=== PATIENT | female | born 1980 | race African-American/Black ===

== ENCOUNTER 2018-05-13 14:09 | Emergency (ER) | payer OTHER ==
[2018-05-13 14:29] VITALS: TEMP 98.8; BMI 33.3
--- NOTE | 2018-05-13 15:16 | PDOC ---
History of Present Illness - General Chief Complaint: Edema Stated Complaint: LUMP ON LT BREAST Time Seen by Provider: 05/13/18 14:47 History Source: Patient Exam Limitations: No Limitations - History of Present Illness Initial Comments: 05/13/18 15:16 Onset of swelling, tenderness, and recurrent abscess to her left breast. States suffers from folliculitis and temples and has had multiple problems with abscesses in the past. Is diabetic, diet controlled now after a 250 pound weight loss status post gastric bypass. But hypertensive and noncompliant with medications Timing/Duration: unsure, 24 hours Severity: mild, moderate Associated Symptoms: reports: denies symptoms. denies: cough, fever/chills Past History - Past Medical History Allergies/Adverse Reactions: Allergies Allergy/AdvReac Type Severity Reaction Status Date / Time ran Allergy Verified 05/13/18 14:59 Home Medications: Ambulatory Orders Amlodipine Besylate 5 mg PO ASDIR #10 tablet 05/13/18 Calcium Carbonate [Calcium] 500 mg PO ASDIR 05/13/18 Sulfamethoxazole/Trimethoprim [Bactrim *Ds*] 1 each PO BID #14 tablet 05/13/18 Zolpidem Tartrate [Ambien] 5 mg PO ONCE 05/13/18 - Suicide/Smoking/Psychosocial Hx Smoking History: Current some day smoker Number of Cigarettes Smoked Daily: 4 Information on smoking cessation initiated: No Hx Alcohol Use: No Drug/Substance Use Hx: No Review of Systems - Review of Systems Able to Perform ROS?: Yes Is the patient limited Setswana proficient: Yes Constitutional: Yes: Symptoms Reported HEENTM: Yes: See HPI. No: Symptoms Reported Respiratory: Yes: See HPI. No: Symptoms reported Musculoskeletal: Yes: See HPI. No: Symptoms Reported Integumentary: Yes: Symptoms Reported, See HPI, Lesions, Lumps (tender to left breast ) All Other Systems: Reviewed and Negative *Physical Exam - Vital Signs Last Vital Signs Temp Pulse Resp BP Pulse Ox 98.8 F 66 16 184/108 H 99 05/13/18 14:20 05/13/18 14:20 05/13/18 14:20 05/13/18 14:20 05/13/18 14:20 - Physical Exam General Appearance: Yes: Nourished, Appropriately Dressed HEENT: positive: MARTI, Normal ENT Inspection, TMs Normal, Pharynx Normal Neck: negative: Tender, Lymphadenopathy (R), Lymphadenopathy (L) Respiratory/Chest: positive: Other (tender nodule to the left breast lower outer quadrant just outside of areole a that is tender with mild erythema circumferentially. It is not pointing, and no drainage able to be expressed. 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 Will start on Bactrim as patient probably suffers from MRSA lesions and have follow-up with with PMD or Dr. Santos breast surgeon for further evaluation and possible incision and drainage *DC/Admit/Observation/Transfer Diagnosis at time of Disposition: Breast abscess - Discharge Dispostion Disposition: HOME Condition at time of disposition: Stable Decision to Admit order: No - Referrals Referrals: Miller aMrley [Staff Physician] - - Patient Instructions Printed Discharge Instructions: DI for Mastitis Additional Instructions: Rest, keep area elevated. Avoid strenuous activity or exercise until wound is healed Use hot soaks to area as often as possible to bring more blood to the surface and encourage drainage May change dressings as needed to keep clean - Allow water from shower to wash area thoroughly for 2-3 minutes, and pat dry upon exit of shower and replace dressing. Change his dressing daily until the wound is completely healed. May use Tylenol or Motrin for mild pain relief Continue all medications as prescribed Followup with private physician in 2-3 days for wound check Return to emergency Department for worsening swelling, pain, redness, fevers as needed - Post Discharge Activity Forms/Work/School Notes: Back to Work
[2018-05-13 15:24] VITALS: BP 166/100; PULSE 63
== END 2018-05-13 15:30 | disposition home or self-care (01) ==
LOC: JER 14:09 → JERFT 14:09
DX: N61.1 Abscess of the breast and nipple (principal)
CPT/HCPCS: 99281-25

== ENCOUNTER 2018-05-21 11:43 | Emergency (ER) | payer OTHER ==
[2018-05-21 11:48] VITALS: BP 146/91; PULSE 88; TEMP 99.6; BMI 32.9
--- NOTE | 2018-05-21 13:01 | PDOC ---
History of Present Illness - General Chief Complaint: Respiratory Stated Complaint: COLD SYMPTOMS Time Seen by Provider: 05/21/18 12:06 Past History - Past Medical History Allergies/Adverse Reactions: Allergies Allergy/AdvReac Type Severity Reaction Status Date / Time ran Allergy Verified 05/21/18 11:47 Home Medications: Ambulatory Orders Amlodipine Besylate 5 mg PO ASDIR #10 tablet 05/13/18 Calcium Carbonate [Calcium] 500 mg PO ASDIR 05/13/18 Sulfamethoxazole/Trimethoprim [Bactrim *Ds*] 1 each PO BID #14 tablet 05/13/18 Zolpidem Tartrate [Ambien] 5 mg PO ONCE 05/13/18 COPD: No - Surgical History Gastric Stapling: Yes - Suicide/Smoking/Psychosocial Hx Smoking History: Never smoked Number of Cigarettes Smoked Daily: 4 Hx Alcohol Use: No Drug/Substance Use Hx: No *Physical Exam - Vital Signs Last Vital Signs Temp Pulse Resp BP Pulse Ox 99.6 F 88 20 146/91 99 05/21/18 11:44 05/21/18 11:44 05/21/18 11:44 05/21/18 11:44 05/21/18 11:44 Moderate Sedation - Procedure Monitoring Vital Signs: Procedure Monitoring Vital Signs Temperature 99.6 F 05/21/18 11:44 Pulse Rate 88 05/21/18 11:44 Respiratory Rate 20 05/21/18 11:44 Blood Pressure 146/91 05/21/18 11:44 O2 Sat by Pulse Oximetry (%) 99 05/21/18 11:44 Medical Decision Making - Medical Decision Making 05/21/18 12:59 I went to pts room assigned and pt not in room. I called the pt's name in fast track while a female pt was walking by but did not respond to her name. That individual proceeded to walk out and through the ER doors. I waited approx 5 minutes until considering pt an elopement, *DC/Admit/Observation/Transfer Diagnosis at time of Disposition: Eloped from emergency department - Discharge Dispostion Disposition: ELOPED Condition at time of disposition: Unchanged/Unknown - Referrals Referrals: ON STAFF,NOT [Primary Care Provider] - - Patient Instructions - Post Discharge Activity
== END 2018-05-21 12:28 | disposition left against medical advice (07) ==
LOC: JERFT 11:43
DX: Z53.21 Procedure and treatment not carried out due to patient leaving prior to being seen by health care provider (principal)
CPT/HCPCS: 99281-25

== ENCOUNTER 2018-07-24 21:33 | Emergency (ER) | payer OTHER ==
--- NOTE | 2018-07-24 21:37 | PDOC ---
Rapid Medical Evaluation Time Seen by Provider: 07/24/18 21:35 Medical Evaluation: Allergies Allergy/AdvReac Type Severity Reaction Status Date / Time ran Allergy Verified 05/21/18 11:47 07/24/18 21:35 I have performed a brief in-person evaluation of this patient. The patient presents with a chief complaint of: requests STD screening Pertinent physical exam findings: deferred I have ordered the following: gc, RPR, HIV The patient will proceed to the ED for further evaluation. Discharge Disposition - Diagnosis Screen for STD (sexually transmitted disease) - Referrals - Patient Instructions - Post Discharge Activity
[2018-07-24 21:45] VITALS: BP 146/92; PULSE 80; TEMP 98.2; BMI 33.3
[2018-07-24] MEDS ORDERED: AZITHROMYCIN 250 MG TABLET PO ONE (22:08)
--- NOTE | 2018-07-24 22:24 | PDOC ---
History of Present Illness - General Chief Complaint: Pain Stated Complaint: STD SCREENING/LUQ PAIN Time Seen by Provider: 07/24/18 21:35 - History of Present Illness Initial Comments: 07/24/18 22:23 38-year-old female concerned about STD transmission from a partner who is symptomatic. Partner had looking white discharge from his penis over the last month. Past History - Past Medical History Allergies/Adverse Reactions: Allergies Allergy/AdvReac Type Severity Reaction Status Date / Time ran Allergy Verified 05/21/18 11:47 shellfish derived Allergy Verified 07/24/18 22:03 Home Medications: Ambulatory Orders Amlodipine Besylate 5 mg PO ASDIR #10 tablet 05/13/18 Calcium Carbonate [Calcium] 500 mg PO ASDIR 05/13/18 Sulfamethoxazole/Trimethoprim [Bactrim *Ds*] 1 each PO BID #14 tablet 05/13/18 Zolpidem Tartrate [Ambien] 5 mg PO ONCE 05/13/18 COPD: No - Surgical History Gastric Stapling: Yes GI Surgery: Yes (Gastric bypass) - Suicide/Smoking/Psychosocial Hx Smoking History: Current every day smoker Number of Cigarettes Smoked Daily: 20 Information on smoking cessation initiated: Yes Hx Alcohol Use: No Drug/Substance Use Hx: No Review of Systems - Review of Systems Constitutional: No: Fever : No: Burning, Dysuria, Discharge *Physical Exam - Vital Signs Last Vital Signs Temp Pulse Resp BP Pulse Ox 98.2 F 80 20 146/92 99 07/24/18 21:42 07/24/18 21:42 07/24/18 21:42 07/24/18 21:42 07/24/18 21:42 - Physical Exam Comments: 07/24/18 22:23 HEAD: NC/AT EYES: Conjuntiva clear MS: Full ROM in all joints without edema NEUROLOGIC: No gross sensory or motor deficits, NVID SKIN: Normal color and temperature no lesions or rashes Medical Decision Making - Medical Decision Making 07/24/18 22:22 38-year-old female refusing HIV testing after possible exposure. She was exposed to chlamydia or gonorrhea as her partner has no acute discharge from his penis. She also refused syphilis testing she has scheduled follow-up with her primary care physician this week *DC/Admit/Observation/Transfer Diagnosis at time of Disposition: Screen for STD (sexually transmitted disease) - Discharge Dispostion Disposition: HOME Condition at time of disposition: Stable Decision to Admit order: No - Referrals Referrals: ON STAFF,NOT [Primary Care Provider] - [facility] [Provider Group] - Patient Instructions Printed Discharge Instructions: Chlamydia: The Silent STD, How to Detect and Treat STDs, Facts About Sexually Transmitted Infections Additional Instructions: You've refused HIV and syphilis testing. Elected follow-up with your primary care physician for further testing. You were treated for gonorrhea and chlamydia this evening. Return to the emergency room should you have any further issues. Please follow-up with your primary care physician as scheduled. - Post Discharge Activity
== END 2018-07-24 22:46 | disposition home or self-care (01) ==
LOC: JERFT 21:33
DX: Z20.2 Contact with and (suspected) exposure to infections with a predominantly sexual mode of transmission (principal)
CPT/HCPCS: 36415; 87491; 87591; 96372; 99281-25

== ENCOUNTER 2018-08-04 13:13 | Emergency (ER) | payer OTHER | END 2018-08-04 15:30 | disposition left against medical advice (07) | LOC: JER 13:13 ==

== ENCOUNTER 2018-10-15 05:33 | Emergency (ER) | payer OTHER ==
--- NOTE | 2018-10-15 05:53 | PDOC ---
History of Present Illness - General Stated Complaint: PSYCH Time Seen by Provider: 10/15/18 05:39 History Source: Patient Exam Limitations: No Limitations - History of Present Illness Initial Comments: 10/15/18 05:52 Pt wants to see a psychiatrist. Past History - Travel Traveled outside of the country in the last 30 days: No Close contact w/someone who was outside of country & ill: No - Past Medical History Allergies/Adverse Reactions: Allergies Allergy/AdvReac Type Severity Reaction Status Date / Time iodine Allergy Verified 10/15/18 06:38 ran Allergy Verified 10/15/18 06:38 shellfish derived Allergy Verified 10/15/18 06:38 Home Medications: Ambulatory Orders Amlodipine Besylate 5 mg PO ASDIR #10 tablet 05/13/18 [place] Carbonate [Eskalith -] 450 mg PO DAILY 07/24/18 Quetiapine Fumarate [Seroquel -] 50 mg PO HS 07/24/18 Ferrous Sulfate [Feosol] 325 mg PO DAILY 10/15/18 COPD: No HTN: Yes - Surgical History Gastric Stapling: Yes GI Surgery: Yes (Gastric bypass 2011) - Immunization History Immunization Up to Date: No - Suicide/Smoking/Psychosocial Hx Smoking History: Current every day smoker Number of Cigarettes Smoked Daily: 20 Hx Alcohol Use: No Drug/Substance Use Hx: No Review of Systems - Review of Systems Constitutional: Yes: Loss of Appetite HEENTM: No: Symptoms Reported, See HPI, Eye Pain, Blurred Vision, Tearing, Recent change in vision, Double Vision, Cataracts, Ear Pain, Ocular Prothesis, Ear Discharge, Nose Pain, Nose Congestion, Tinnitus, Nose Bleeding, Hearing Loss , Throat Pain, Throat Swelling, Mouth Pain, Dental Problems, Difficulty Swallowing, Mouth Swelling, Other Respiratory: No: Symptoms reported, See HPI, Cough, Orthopnea, Shortness of Breath, SOB with Exertion, SOB at Rest, Stridor, Wheezing, Productive cough, Hemoptysis, Other ABD/GI: No: Symptoms Reported, See HPI, Abdominal Distended, Abd. Pain w/ defecation, Blood Streaked Bowels, Constipated, Diarrhea, Difficulty Swallowing , Nausea, Poor Appetite, Poor Fluid Intake, Rectal Bleeding, Vomiting, Indigestion, Abdominal cramping, Tarry Stools, Other : No: Symptoms Reported, See HPI, Burning, Dysuria, Discharge, Frequency, Flank Pain, Hematuria, Incontinence, Pain, Urgency, Testicular Mass, Testicular Swelling, Lesions, Testicular Pain, Other Musculoskeletal: No: Symptoms Reported, See HPI, Back Pain, Gout, Joint Pain, Joint Swelling, Muscle Pain, Muscle Weakness, Neck Pain, Joint Stiffness, Other Integumentary: No: Symptoms Reported, See HPI, Bruising, Change in Color, Change in Hair/Nails, Dryness, Erythema, Flushing, Lesions, Lumps, Pallor, Pruritus, Rash, Sweating, Other Neurological: No: Symptoms reported, See HPI, Headache, Numbness, Paresthesia, Pre-Existing Deficit, Seizure, Tingling, Tremors, Weakness, Unsteady Gait, Ataxia, Dizziness, Other *Physical Exam - Physical Exam General Appearance: Yes: Nourished, Appropriately Dressed HEENT: positive: EOMI, MARTI, Normal ENT Inspection Neck: positive: Trachea midline, Supple Respiratory/Chest: positive: Lungs Clear, Normal Breath Sounds. negative: Respiratory Distress Cardiovascular: positive: Regular Rhythm, Regular Rate, S1, S2 Gastrointestinal/Abdominal: positive: Normal Bowel Sounds, Flat, Soft Musculoskeletal: positive: Normal Inspection Extremity: positive: Normal Capillary Refill, Normal Inspection, Normal Range of Motion Integumentary: positive: Normal Color, Dry, Warm, Other (Pt has loose skin secondary to significant weight loss) ED Treatment Course - LABORATORY CBC & Chemistry Diagram: 10/15/18 06:08 10/15/18 06:08 - RADIOLOGY Radiology Studies Ordered: Category Date Time Status CHEST X-RAY PORTABLE* [RAD] Stat Radiology 10/15/18 05:44 Ordered Medical Decision Making - Medical Decision Making 10/15/18 06:24 Pt is anemic. otherwise CBC ok. Chem pending. 10/15/18 06:33 Consult for Susana placed in the computer. I will call his service to let him know he needs to eval the patient. 10/15/18 06:37 Patient will be signed out to the day ER team. Awaiting psych eval and lab results. 10/15/18 07:16 Dr. Meza is aware of the patient. *DC/Admit/Observation/Transfer Diagnosis at time of Disposition: Depression - Referrals - Patient Instructions - Post Discharge Activity Forms/Work/School Notes: My Personal Safety Plan
[2018-10-15 06:00] VITALS: BMI 27.4
[2018-10-15 06:17] LABS: BASO % 1.6 % (0-2.0); EOS % 4.4 % (0-4.5); HEMATOCRIT 27.6 % (32.4-45.2); HEMOGLOBIN 9.3 GM/dL (10.7-15.3); LYMPH % 39.1 % (8-40); MCH 26.6 pg (25.7-33.7); MCHC 33.5 g/dl (32.0-36.0); MEAN CELL VOLUME 79.3 fl (80-96); MEAN PLT VOLUME 6.9 fl (7.5-11.1); MONO % 10.8 % (3.8-10.2); NEUT % 44.1 % (42.8-82.8); PLATELET COUNT 347 K/MM3 (134-434); RBC 3.48 M/mm3 (3.60-5.2); RDW 15.1 % (11.6-15.6)
[2018-10-15 07:04] LABS: ALBUMIN 3.2 g/dl (3.4-5.0); BILIRUBIN,TOTAL 0.4 mg/dL (0.2-1); BLOOD UREA NITROGEN 17.8 mg/dL (7-18); CALCIUM 8.4 mg/dL (8.5-10.1); CREATININE 0.9 mg/dL (0.55-1.3); POTASSIUM 3.1 mmol/L (3.5-5.1); TOT PROT 6.9 g/dl (6.4-8.2)
[2018-10-15] MEDS ORDERED: POTASSIUM CHLORIDE TABS 20 MEQ TABLET.ER (FP) PO ONE ×2 (07:10→10:28)
--- NOTE | 2018-10-15 07:38 | PDOC ---
*Physical Exam - Vital Signs Last Vital Signs Temp Pulse Resp BP Pulse Ox 98.8 F 70 18 151/100 100 10/15/18 05:45 10/15/18 05:45 10/15/18 05:45 10/15/18 05:45 10/15/18 05:45 ED Treatment Course - LABORATORY CBC & Chemistry Diagram: 10/16/18 15:29 10/16/18 15:29 - ADDITIONAL ORDERS Additional order review: Laboratory Results 10/15/18 10/15/18 06:08 06:08 Sodium 143 Potassium 3.1 L Chloride 108 H Carbon Dioxide 29 Anion Gap 7 L BUN 17.8 Creatinine 0.9 Est GFR (CKD-EPI)AfAm 95.34 Est GFR (CKD-EPI)NonAf 82.26 Random Glucose 83 Calcium 8.4 L Total Bilirubin 0.4 AST 19 ALT 21 Alkaline Phosphatase 61 Total Protein 6.9 Albumin 3.2 L Beta HCG, Quant < 1.0 10/15/18 06:08 RBC 3.48 L MCV 79.3 L MCHC 33.5 RDW 15.1 MPV 6.9 L Neutrophils % 44.1 Lymphocytes % 39.1 Monocytes % 10.8 H Eosinophils % 4.4 Basophils % 1.6 Medical Decision Making - Medical Decision Making 10/15/18 07:[address] Owen Pt. is a 38yo F hx of schizophrenia, bipolar disorder and depression asking to see psychiatrist. She endorses homicidal and suicidal ideation. Dr. Mcgee was contacted by . 10/15/18 07:33 Pt is not very cooperative and doesn't want to talk to men She states that she doesn't want to live and if she does she will hurt someone. She has stated the wish to be transferred to [facility]. Admits to PCp,cocaine and alcohol use [address] Mcgee has seen the patient and due to her disorganized behavior/patterns, lack of insight and risk of harm to herself and others,is reecommending psych hold for the next 72 hrs. Social work put in alert to find available bed at psych facility. -social insurance analyst request ordered. -social services unable to find bed at facility at this time. Pt will wait in the ED -Pt given Sinton in ED - On reassessment pt says he gets abdominal pain after taking Sinton. Pt assesed with epigastric tenderness. Lipase level ordered and ranitidine 150mg po ordered to help with reflux symptoms.Lipase level normal Signed out to Dr. Lagos 10/17/18 12:29 *DC/Admit/Observation/Transfer Diagnosis at time of Disposition: Depression Qualifiers: Active/Remission status: remission status unspecified Psychosis Qualifiers: Psychosis type: unspecified psychosis type Qualified Code(s): F29 - Unspecified psychosis not due to a substance or known physiological condition - Discharge Dispostion Disposition: TRANSFER ACUTE CARE/OTHER HOSP Condition at time of disposition: Stable - Referrals - Patient Instructions - Post Discharge Activity Forms/Work/School Notes: My Personal Safety Plan
--- NOTE | 2018-10-15 09:21 | PDOC ---
Attending Attestation - Resident Resident Name: Abdoul East - ED Attending Attestation I have performed the following: I have examined & evaluated the patient, The case was reviewed & discussed with the resident, I agree w/resident's findings & plan, Exceptions are as noted - HPI HPI: 38 yo F history schizophrenia, bipolar d/o presented with SI/HI. Initially she was not willing to give any history upon arrival on prior shift, was also not willing to speak to a male provider. As per evening staff, she was responding to internal stimuli on their observation. She has refused to provide any further history except that she is homicidal and suicidal. - Physicial Exam PE: GENERAL: Awake, alert, and fully oriented, in no acute distress HEAD: No signs of trauma EXTREMITIES: Normal range of motion, no edema. No clubbing or cyanosis. No cords, erythema, or tenderness NEUROLOGICAL: Cranial nerves II through XII grossly intact. Normal speech, normal gait. Motor and sensation intact SKIN: Warm, dry, normal turgor, no rashes or lesions noted. - Medical Decision Making Pt presents with HI/SI, prior psychiatric history. Placed on 1:1. Case d/w Dr. Meza. 10/15/18 11:[address] Meza, found to be acutely psychotic, 2-PC paperwork filled out. Social work notified, will seek a bed for her.
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
--- NOTE | 2018-10-15 11:30 | EKG ---
Test Reason : Blood Pressure : / mmHG Vent. Rate : 063 BPM Atrial Rate : 063 BPM P-R Int : 166 ms QRS Dur : 118 ms QT Int : 436 ms P-R-T Axes : 034 -32 003 degrees QTc Int : 446 ms NORMAL SINUS RHYTHM LEFT AXIS DEVIATION NON-SPECIFIC INTRA-VENTRICULAR CONDUCTION DELAY ABNORMAL ECG NO PREVIOUS ECGS AVAILABLE Confirmed by AMADO SHANNON MD ([id number]) on 10/15/2018 11:30:24 AM Referred By: FRANCISCO Confirmed By:AMADO SHANNON MD
[2018-10-15] MEDS: LITHIUM CARBONATE 450 MG TABLET.ER PO SCH (16:40)
[2018-10-15] MEDS ORDERED: RANITIDINE HCL 150 MG TABLET (FP) PO ONE (17:38)
[2018-10-15] MEDS ORDERED: RANITIDINE HCL 150 MG TABLET (FP) ONE (17:44)
--- NOTE | 2018-10-15 22:17 | PDOC ---
*Physical Exam - Vital Signs Last Vital Signs Temp Pulse Resp BP Pulse Ox 98.8 F 64 18 126/89 100 10/15/18 18:57 10/15/18 18:57 10/15/18 18:57 10/15/18 18:57 10/15/18 18:57 - Physical Exam Comments: 10/16/18 07:08 Unable to assess, patient unwilling to be seen by male providers, refer to PE from prior notes. Clinical status unchanged overnight. ED Treatment Course - LABORATORY CBC & Chemistry Diagram: 10/15/18 06:08 10/15/18 06:08 - ADDITIONAL ORDERS Additional order review: Laboratory Results 10/15/18 06:08 Sodium 143 Potassium 3.1 L Chloride 108 H Carbon Dioxide 29 Anion Gap 7 L BUN 17.8 Creatinine 0.9 Est GFR (CKD-EPI)AfAm 95.34 Est GFR (CKD-EPI)NonAf 82.26 Random Glucose 83 Calcium 8.4 L Total Bilirubin 0.4 AST 19 ALT 21 Alkaline Phosphatase 61 Total Protein 6.9 Albumin 3.2 L Lipase 143 10/15/18 06:08 RBC 3.48 L MCV 79.3 L MCHC 33.5 RDW 15.1 MPV 6.9 L Neutrophils % 44.1 Lymphocytes % 39.1 Monocytes % 10.8 H Eosinophils % 4.4 Basophils % 1.6 - Medications Given in the ED: ED Medications Discontinued Medications Generic Name Dose Route Start Last Admin Trade Name Freq PRN Reason Stop Dose Admin Potassium Chloride 40 meq 10/15/18 07:10 10/15/18 10:39 K-Dur - PO 10/15/18 07:11 40 meq ONCE ONE Administration Ranitidine HCl 150 mg 10/15/18 17:38 10/15/18 17:45 Zantac - PO 10/15/18 17:39 150 mg ONCE ONE Administration Medical Decision Making - Medical Decision Making 10/15/18 19:04 Patient signed out to me by Dr. East. Patient seen by psych Dr. Uribe today, recommends admission to inpatient psych facility for active psychosis. Social work currently planning for transfer. Patient refuses to see male staff, has 1:1 observer monitoring. Checked in with staff overseeing her care, patient is resting comfortably in bed and has calmed down considerably since first presentation. Will continue to monitor, but no interventions needed at this time. 10/16/18 01:00 Patient resting comfortably in bed, will continue to monitor. Still pending inpatient psych transfer. 10/16/18 07:[address] Marie. Social Work called for placement in inpatient psych today. *DC/Admit/Observation/Transfer Diagnosis at time of Disposition: Depression, Psychosis - Referrals - Patient Instructions - Post Discharge Activity Forms/Work/School Notes: My Personal Safety Plan
--- NOTE | 2018-10-16 07:22 | PDOC ---
*Physical Exam - Vital Signs Last Vital Signs Temp Pulse Resp BP Pulse Ox 98.2 F 50 L 18 140/86 100 10/16/18 00:54 10/16/18 06:50 10/16/18 06:50 10/16/18 06:50 10/16/18 06:50 ED Treatment Course - LABORATORY CBC & Chemistry Diagram: 10/16/18 15:29 10/16/18 15:29 - ADDITIONAL ORDERS Additional order review: 10/15/18 06:08 RBC 3.48 L MCV 79.3 L MCHC 33.5 RDW 15.1 MPV 6.9 L Neutrophils % 44.1 Lymphocytes % 39.1 Monocytes % 10.8 H Eosinophils % 4.4 Basophils % 1.6 - Medications Given in the ED: ED Medications Discontinued Medications Generic Name Dose Route Start Last Admin Trade Name Freq PRN Reason Stop Dose Admin Potassium Chloride 40 meq 10/15/18 07:10 10/15/18 10:39 K-Dur - PO 10/15/18 07:11 40 meq ONCE ONE Administration Ranitidine HCl 150 mg 10/15/18 17:38 10/15/18 17:45 Zantac - PO 10/15/18 17:39 150 mg ONCE ONE Administration Medical Decision Making - Medical Decision Making 10/16/18 07:21 Pt signed out to me by Dr. Lagos, night EM resident. 38 year old female with PMH schizophrenia presented to ED for paranoid behavior , SI/HI. Pt was seen and evaluated by Dr. Meza, Psych application software developer, who recommended inpatient treatment. CMP Sodium 143 mmol/L (136-145) 10/15/18 06:08 Potassium 3.1 mmol/L (3.5-5.1) L 10/15/18 06:08 Chloride 108 mmol/L (98-107) H 10/15/18 06:08 Carbon Dioxide 29 mmol/L (21-32) 10/15/18 06:08 Anion Gap 7 MMOL/L (8-16) L 10/15/18 06:08 BUN 17.8 mg/dL (7-18) 10/15/18 06:08 Creatinine 0.9 mg/dL (0.55-1.3) 10/15/18 06:08 Est GFR (CKD-EPI)AfAm 95.34 10/15/18 06:08 Est GFR (CKD-EPI)NonAf 82.26 10/15/18 06:08 Random Glucose 83 mg/dL (74-106) 10/15/18 06:08 Calcium 8.4 mg/dL (8.5-10.1) L 10/15/18 06:08 Total Bilirubin 0.4 mg/dL (0.2-1) 10/15/18 06:08 AST 19 U/L (15-37) 10/15/18 06:08 ALT 21 U/L (13-61) 10/15/18 06:08 Alkaline Phosphatase 61 U/L (45-117) 10/15/18 06:08 Total Protein 6.9 g/dl (6.4-8.2) 10/15/18 06:08 Albumin 3.2 g/dl (3.4-5.0) L 10/15/18 06:08 Lipase 143 U/L (73-393) 10/15/18 06:08 Beta HCG, Quant < 1.0 mIU/ml 10/15/18 06:08 I spoke with case management about obtaining placement for the patient in an inpatient psych facility for acute psychosis. They stated they are working on placement. Pending transfer. 10/16/18 11:39 graphic pre press trades worker reported pt is on waiting list for [facility]. No beds available at the moment. Psych will review case at 12. 10/16/18 16:00 Dr. Gilbert spoke with [facility], who requested labs/urine drug screen. CBC WBC 4.0 K/mm3 (4.0-10.0) 10/16/18 15:29 RBC 3.54 M/mm3 (3.60-5.2) L 10/16/18 15:29 Hgb 9.3 GM/dL (10.7-15.3) L 10/16/18 15:29 Hct 28.3 % (32.4-45.2) L 10/16/18 15:29 MCV 80.1 fl (80-96) 10/16/18 15:29 MCH 26.3 pg (25.7-33.7) 10/16/18 15:29 MCHC 32.8 g/dl (32.0-36.0) 10/16/18 15:29 RDW 15.5 % (11.6-15.6) 10/16/18 15:29 Plt Count 335 K/MM3 (134-434) 10/16/18 15:29 MPV 7.6 fl (7.5-11.1) D 10/16/18 15:29 Absolute Neuts (auto) 1.7 K/mm3 (1.5-8.0) 10/16/18 15:29 Neutrophils % 44.0 % (42.8-82.8) 10/16/18 15:29 Lymphocytes % 39.5 % (8-40) 10/16/18 15:29 Monocytes % 10.2 % (3.8-10.2) 10/16/18 15:29 Eosinophils % 4.5 % (0-4.5) 10/16/18 15:29 Basophils % 1.8 % (0-2.0) 10/16/18 15:29 Nucleated RBC % 0 % (0-0) 10/16/18 15:29 UDS negative ETOH negative 10/16/18 17:28 Pt accepted to [facility]. Pending transfer. Ambulance to arrive at 1800. *DC/Admit/Observation/Transfer Diagnosis at time of Disposition: Depression, Psychosis - Discharge Dispostion Disposition: TRANSFER ACUTE CARE/OTHER HOSP Condition at time of disposition: Stable Decision to Admit order: No - Referrals - Patient Instructions - Post Discharge Activity Forms/Work/School Notes: My Personal Safety Plan
[2018-10-16] MEDS ORDERED: RANITIDINE HCL 150 MG TABLET (FP) PO ONE (09:32)
[2018-10-16] MEDS ORDERED: RANITIDINE HCL 150 MG TABLET (FP) ONE (10:31)
[2018-10-16] MEDS: LITHIUM CARBONATE 450 MG TABLET.ER PO SCH (10:35)
[2018-10-16 15:02] LABS: COCAINE, UR NEGATIVE ng/ml (CUTOFF=300); METHADONE, UR NEGATIVE ng/ml (CUTOFF=300); OPIATES, URI NEGATIVE ng/ml (CUTOFF=300); PHENCYCLIDINE,URINE NEGATIVE ng/ml (CUTOFF=25); URINE AMPHETAMINES NEGATIVE ng/ml (CUTOFF=500); URINE BARBITURATES NEGATIVE ng/ml (CUTOFF=200); URINE BENZODIAZEPINES NEGATIVE ng/ml (CUTOFF=200)
[2018-10-16 15:41] LABS: BASO % 1.8 % (0-2.0); EOS % 4.5 % (0-4.5); HEMATOCRIT 28.3 % (32.4-45.2); HEMOGLOBIN 9.3 GM/dL (10.7-15.3); LYMPH % 39.5 % (8-40); MCH 26.3 pg (25.7-33.7); MCHC 32.8 g/dl (32.0-36.0); MEAN CELL VOLUME 80.1 fl (80-96); MEAN PLT VOLUME 7.6 fl (7.5-11.1); MONO % 10.2 % (3.8-10.2); PLATELET COUNT 335 K/MM3 (134-434); RBC 3.54 M/mm3 (3.60-5.2); RDW 15.5 % (11.6-15.6)
[2018-10-16 16:04] LABS: ALBUMIN 2.9 g/dl (3.4-5.0); BILIRUBIN,TOTAL 0.2 mg/dL (0.2-1); BLOOD UREA NITROGEN 16.1 mg/dL (7-18); CALCIUM 8.6 mg/dL (8.5-10.1); CREATININE 0.8 mg/dL (0.55-1.3); TOT PROT 6.3 g/dl (6.4-8.2)
[2018-10-16 19:01] VITALS: BP 131/93; PULSE 55; TEMP 98.1
--- NOTE | 2018-10-17 16:16 | EKG ---
Test Reason : Blood Pressure : / mmHG Vent. Rate : 047 BPM Atrial Rate : 047 BPM P-R Int : 162 ms QRS Dur : 102 ms QT Int : 468 ms P-R-T Axes : 041 006 -02 degrees QTc Int : 414 ms SINUS BRADYCARDIA OTHERWISE NORMAL ECG WHEN COMPARED WITH ECG OF 15-OCT-2018 05:49, NO SIGNIFICANT CHANGE WAS FOUND Confirmed by MD EMANI, CINTHIA ([id number]) on 10/17/2018 4:16:35 PM Referred By: Confirmed By:CINTHIA JOAQUIN MD
== END 2018-10-16 20:26 | disposition short-term general hospital (02) ==
LOC: JER 05:33
DX: F29 Unspecified psychosis not due to a substance or known physiological condition (principal); F32.9 Major depressive disorder, single episode, unspecified; R45.851 Suicidal ideations; R45.850 Homicidal ideations
CPT/HCPCS: 36415; 80053; 80307; 83690; 84702; 85025; 93005; 93010; 99285-25

== ENCOUNTER 2018-11-27 22:22 | Emergency (ER) | payer OTHER ==
[2018-11-27 22:30] VITALS: PULSE 72; TEMP 98.7; BMI 31.6
--- NOTE | 2018-11-27 23:09 | PDOC ---
History of Present Illness - General Chief Complaint: Pain Stated Complaint: STD Time Seen by Provider: 11/27/18 23:09 History Source: Patient - History of Present Illness Initial Comments: 11/27/18 23:15 38 year old female c/o dysuria , white vaginal discharge, reports STI exposure with a new partner. [facility] PMHX: hypertension on amlodipine, DM, scoliosis, latent TB, LMP: 10/201811/27/18 23:21 Past History - Past Medical History Allergies/Adverse Reactions: Allergies Allergy/AdvReac Type Severity Reaction Status Date / Time iodine Allergy Verified 10/15/18 06:38 ran Allergy Verified 10/15/18 06:38 shellfish derived Allergy Verified 10/15/18 06:38 Home Medications: Ambulatory Orders Amlodipine Besylate 5 mg PO ASDIR #10 tablet 05/13/18 [place] Carbonate [Eskalith -] 450 mg PO DAILY 07/24/18 Quetiapine Fumarate [Seroquel -] 50 mg PO HS 07/24/18 Ferrous Sulfate [Feosol] 325 mg PO DAILY 10/15/18 Fluconazole [Diflucan -] 150 mg PO ONCE #2 tablet 11/27/18 COPD: No HTN: Yes Psychiatric Problems: Yes - Surgical History Gastric Stapling: Yes GI Surgery: Yes (Gastric bypass 2011) - Immunization History Immunization Up to Date: No - Psycho Social/Smoking Cessation Hx Smoking History: Current every day smoker Number of Cigarettes Smoked Daily: 10 Information on smoking cessation initiated: No Hx Alcohol Use: No Drug/Substance Use Hx: No Review of Systems - Review of Systems Able to Perform ROS?: Yes Is the patient limited Kazakh proficient: No : Yes: Other (vaginal discharge) *Physical Exam - Vital Signs Last Vital Signs Temp Pulse Resp BP Pulse Ox 98.7 F 72 19 174/107 H 100 11/27/18 22:27 11/27/18 22:27 11/27/18 22:27 11/27/18 22:27 11/27/18 22:27 - Physical Exam General Appearance: Yes: Appropriately Dressed Female Pelvic Exam: positive: normal external exam, normal adnexa, other ( cottage cheese appearing white vaginal discharge. ). negative: adnexal tenderness, vaginal bleeding Musculoskeletal: positive: Normal Inspection Extremity: positive: Normal Capillary Refill, Normal Inspection, Normal Range of Motion Integumentary: positive: Normal Color, Dry, Warm Neurologic: positive: Fully Oriented, Alert, Normal Mood/Affect Medical Decision Making - Medical Decision Making 11/28/18 00:00 STI exposure; hypertension P: GC ua Urine culture urine Hypertension: patient to follow up with pcp for medication adjustment. Discharge - Discharge Information Problems reviewed: Yes Clinical Impression/Diagnosis: Screen for STD (sexually transmitted disease), Candidiasis of vulva and vagina Condition: Stable Disposition: HOME - Additional Discharge Information Prescriptions: Fluconazole [Diflucan -] 150 mg PO ONCE #2 tablet - Follow up/Referral Referrals: Janine Appiah MD [Primary Care Provider] - - Patient Discharge Instructions Patient Printed Discharge Instructions: How to Detect and Treat STDs Additional Instructions: refrain from sex for 1 week after treatment follow up with your doctor as soon as possible. we will call you if you gonorrhea chlamydia test is positive. Your partner also should be treated It is important that he follow-up with a camelid fiber sorter. - Post Discharge Activity Work/Back to School Note: Back to Work
--- NOTE | 2018-11-27 23:13 | PDOC ---
*Physical Exam - Vital Signs Last Vital Signs Temp Pulse Resp BP Pulse Ox 98.7 F 72 19 174/107 H 100 11/27/18 22:27 11/27/18 22:27 11/27/18 22:27 11/27/18 22:27 11/27/18 22:27 Medical Decision Making - Medical Decision Making 11/27/18 23:11 Patient seen by the advanced practice provider under my direct supervision. Ancillary testing reviewed as necessary. I agree with plan as outlined by the advanced practice provider. Discharge - Discharge Information Problems reviewed: Yes Clinical Impression/Diagnosis: Screen for STD (sexually transmitted disease), Candidiasis of vulva and vagina Condition: Stable Disposition: HOME - Additional Discharge Information Prescriptions: Fluconazole [Diflucan -] 150 mg PO ONCE #2 tablet - Follow up/Referral Referrals: Janine Appiah MD [Primary Care Provider] - - Patient Discharge Instructions Patient Printed Discharge Instructions: How to Detect and Treat STDs Additional Instructions: refrain from sex for 1 week after treatment follow up with your doctor as soon as possible. we will call you if you gonorrhea chlamydia test is positive. Your partner also should be treated It is important that he follow-up with a back tender cloth printing. - Post Discharge Activity Work/Back to School Note: Back to Work
[2018-11-27] MEDS ORDERED: AZITHROMYCIN 500 MG TABLET PO ONE (23:58)
[2018-11-28 00:38] LABS: PH,URINE 6.5 (5.0-8.0); URINE APPEARANCE CLEAR; URINE BILIRUBIN NEGATIVE (NEGATIVE); URINE COLOR YELLOW; URINE GLUCOSE (UA) NEGATIVE (NEGATIVE); URINE KETONE NEGATIVE (NEGATIVE); URINE LEUK ESTERASE NEGATIVE (NEGATIVE); URINE NITRITE NEGATIVE (NEGATIVE); URINE PROTEIN NEGATIVE (NEGATIVE); URINE UROBILINOGEN 0.2 mg/dL (0.2-1.0)
[2018-11-28 01:24] VITALS: BP 154/96
== END 2018-11-28 01:25 | disposition home or self-care (01) ==
LOC: JER 22:22
PROC: 3E0233Z Introduction of Anti-inflammatory into Muscle, Percutaneous Approach (ICD-10-PCS; principal; 2018-11-27)
DX: B37.3 Candidiasis of vulva and vagina (principal); I10 Essential (primary) hypertension; Z20.2 Contact with and (suspected) exposure to infections with a predominantly sexual mode of transmission; M41.9 Scoliosis, unspecified; I11.9 Hypertensive heart disease without heart failure; F99 Mental disorder, not otherwise specified; R76.11 Nonspecific reaction to tuberculin skin test without active tuberculosis; Z88.4 Allergy status to anesthetic agent; Z91.013 Allergy to seafood; Z91.018 Allergy to other foods; Z88.8 Allergy status to other drugs, medicaments and biological substances
CPT/HCPCS: 36415; 81003; 84703; 87086; 87491; 87591; 96372; 99282-25